=== PATIENT | female | born 2000 | race Two or more races ===

== ENCOUNTER 2024-03-06 11:11 | Outpatient (CLI) | payer OTHER | END 2024-03-06 11:12 | disposition home or self-care (01) | LOC: PRENATAL 11:11 | PROVIDERS: ATTEND Obstetrics & Gynecology Maternal & Fetal Medicine | DX: O26.849 Uterine size-date discrepancy, unspecified trimester (principal); O36.8199 Decreased fetal movements, unspecified trimester, other fetus; O34.219 Maternal care for unspecified type scar from previous cesarean delivery; O28.3 Abnormal ultrasonic finding on antenatal screening of mother; Z3A.32 32 weeks gestation of pregnancy ==

== ENCOUNTER → 2024-04-03 10:31 | Outpatient (CLI) | payer OTHER | END | disposition home or self-care (01) | LOC: PRENATAL 10:31 | PROVIDERS: ATTEND Obstetrics & Gynecology Maternal & Fetal Medicine | DX: O26.849 Uterine size-date discrepancy, unspecified trimester (principal); O36.8199 Decreased fetal movements, unspecified trimester, other fetus; O34.219 Maternal care for unspecified type scar from previous cesarean delivery; O28.3 Abnormal ultrasonic finding on antenatal screening of mother; Z3A.36 36 weeks gestation of pregnancy ==

== ENCOUNTER 2024-04-18 12:05 | Inpatient (IN) | payer OTHER ==
[~2024-04-18] VITALS: Ht 157.5 cm; Wt 67.6 kg
[2024-04-18 14:28] LABS: HEMATOCRIT 32.6 % (36.0-45.00); HEMOGLOBIN 11.1 g/dL (12.0-15.00); MEAN CELL VOLUME 87.8 fL (80.00-100.00); MEAN CORPUSCULAR HEMOGLOBIN 29.8 pg (27.00-32.0); PLATELET COUNT 156 K/uL (150-450); RED BLOOD COUNT 3.72 M/uL (4.00-6.00)
[2024-04-18 15:08] LABS: BILIRUBIN TOTAL 0.4 mg/dL (0.3-1.2); CALCIUM 8.4 mg/dL (8.5-10.1); CREATININE SERUM 0.38 mg/dL (0.55-1.02); GFR 208.06; GLOBULINA 3.7 G/DL (2.4-3.5); POTASSIUM 3.54 mEq/L (3.5-5.1); TOTAL PROTEIN 6.7 gm/dL (6.4-8.2)
[2024-04-18 15:39] LABS: INR < 0.93; PARTIAL THROMBOPLASTIN TIME 27.5 SECONDS (22.0-34.0); PROTHROMBIN TIME 10.1 SECONDS (9.0-11.5)
[2024-04-21 05:40] VITALS: BP 98/60
[2024-04-21] MEDS ORDERED: PRENATAL TABLE1 EAC1 PO (06:04)
[2024-04-21] MEDS ORDERED: CEFAZOLIN SODIUM 1,000 MG VIAL IV ONE (08:30)
[2024-04-21] MEDS ORDERED: OXYTOCIN 10 UNITS/ML VIAL IV ONE (08:30)
[2024-04-21] MEDS ORDERED: ERYTHROMYCIN BASE OPHT 1GM EACH TUBE OP ONE (08:30)
[2024-04-21] MEDS ORDERED: MORPHINE SULFATE 4 MG/ML CARTRIDGE IV PRN ×2 (10:30→10:45)
[2024-04-21] MEDS ORDERED: KETOROLAC TROMETHAMINE 30 MG VIAL IV NR ×2 (10:30→10:45)
[2024-04-21] MEDS ORDERED: KETOROLAC TROMETHAMINE 30 MG VIAL IV SCH ×2 (12:00)
[2024-04-21] MEDS ORDERED: ACETAMINOPHEN 325 MG TABLET PO SCH ×2 (12:00)
[2024-04-21 13:42] VITALS: BP 90/55
[2024-04-22] VITALS: BP 94/56
[2024-04-22] MEDS ORDERED: OxyCODONE HCL 5 MG TABLET (ROXICODONE) PO PRN ×2 (06:00)
[2024-04-22] MEDS ORDERED: KETOROLAC TROMETHAMINE 30 MG VIAL IV STA (08:25)
[2024-04-22 08:38] VITALS: BP 107/56
[2024-04-22] MEDS ORDERED: IBUprofen 400 MG TABLET PO PRN (09:00)
[2024-04-22] MEDS ORDERED: IBUprofen 800 MG TABLET PO SCH (17:00)
[2024-04-22 17:20] VITALS: BP 103/64
[2024-04-22 22:10] LABS: HEMATOCRIT 27.4 % (36.0-45.00); HEMOGLOBIN 9.5 g/dL (12.0-15.00); MEAN CELL VOLUME 87.8 fL (80.00-100.00); MEAN CORPUSCULAR HEMOGLOBIN 30.3 pg (27.00-32.0); MEAN CORPUSCULAR HGB CONC 34.5 g/dl (32.0-36.0); PLATELET COUNT 150 K/uL (150-450); RED BLOOD COUNT 3.12 M/uL (4.00-6.00); RED CELL DISTRIBUTION WIDTH 14.2 % (11.5-14.5)
[2024-04-23] VITALS: BP 101/67
[2024-04-23 08:16] VITALS: BP 103/62
[2024-04-23 16:00] VITALS: BP 105/61
[2024-04-24] VITALS: BP 113/74
[2024-04-24 09:27] VITALS: BP 105/64
[2024-04-24 16:25] VITALS: BP 111/63
[2024-04-25 01:35] VITALS: BP 112/70
[2024-04-25 08:52] VITALS: BP 107/66
== END 2024-04-25 18:29 | disposition home or self-care (01) | DRG 787 ==
LOC: O/R 04-21 05:15 → OB/GYN 04-21 12:04
PROVIDERS: ADMIT Obstetrics & Gynecology; ATTEND Obstetrics & Gynecology
PROC: 4A1HXCZ Monitoring of Products of Conception, Cardiac Rate, External Approach (ICD-10-PCS; 2024-04-21)
PROC: 10D00Z1 Extraction of Products of Conception, Low, Open Approach (ICD-10-PCS; principal; 2024-04-21 17:30)
DX: O34.211 Maternal care for low transverse scar from previous cesarean delivery (principal); O99.892 Other specified diseases and conditions complicating childbirth; N13.30 Unspecified hydronephrosis; Z3A.38 38 weeks gestation of pregnancy; Z37.0 Single live birth; Z20.822 Contact with and (suspected) exposure to COVID-19